=== PATIENT | male | born 1970 | race Caucasian/White ===

== ENCOUNTER 2016-09-07 12:00 | Inpatient (IN) | payer OTHER ==
--- NOTE | ~2016-09-07 | PN ---
Unit #: [id number] #: [id number] Patient: JACOB MEZA [id number] [facility] [address] [place] [address] [id number] MR#: [id number] NAME: JACOB MEZA ROOM: [facility] Age: 45 Sex: M Admission Date: 09/07/2016 : 1970 Attending Physician: Remi Stewart M.D. Admitting Physician: Remi Stewart M.D. Primary Care Physician: Primary Care Physician Jaimie HENRY PROGRESS NOTES DATE OF SERVICE 09/10/16 DISCUSSION Jacob is a 45-year-old male seen on 09/10/16. Patient interviewed, chart reviewed, I obtained information from nursing staff. Patient compliant, cooperative. Mood labile. Patient reports still having trouble sleeping, but denied any thoughts of harming self or others, making progress. COMPLETE REVIEW OF SYSTEMS Unremarkable. MENTAL STATUS EXAMINATION GENERAL APPEARANCE: Patient dressed casually. ATTENTION SPAN AND CONCENTRATION: Fair. Oriented in place and person. MOOD AND AFFECT: Labile. SPEECH: Monotone. THOUGHT PROCESS: Trail. Patient denied any thoughts of harming self or others, or any psychotic symptoms. RECENT AND REMOTE MEMORY: Poor. INSIGHT AND JUDGMENT: Poor. DIAGNOSIS Opiate use disorder, severe Mood disorder, NOS ASSESSMENT/PLAN Advised to continue with current medication and therapeutic protocol. If needed, consider further adjustment in medication. Dictated by... Lucero Chan/anibal TD: 09/10/2016 23:41 JOB #: [id number] Unit #: [id number] #: [id number] Patient: JACOB MEZA PEAELI PROGRESS NOTES Page 1 of 1 X Remi Stewart MD X PROGRESS NOTE
--- NOTE | ~2016-09-07 | PN ---
Unit #: [id number] #: [id number] Patient: ARGENIS MEZA [id number] [facility] [address] [place] [address] [id number] I MR#: [id number] NAME: ARGENIS MEZA ROOM: [facility] Age: 45 Sex: M Admission Date: 09/07/2016 : 1970 Attending Physician: Remi Stewart M.D. Admitting Physician: Remi Stewart M.D. Primary Care Physician: Primary Care Physician Jaimie HENRY PROGRESS NOTES DATE OF SERVICE 09/09/16 DISCUSSION Mr. James is a 45-year-old male patient seen on 09/09/16. Patient continues to report feeling, depressed, anxious, trouble falling asleep, denied any suicidal or homicidal ideation but reports making progress. COMPLETE REVIEW OF SYSTEMS Unremarkable. MENTAL STATUS EXAMINATION GENERAL APPEARANCE: Patient dressed casually. ATTENTION SPAN AND CONCENTRATION: Fair. Oriented in time, place and person. MOOD AND AFFECT: Sad, dysphoric, seclusive, isolative. SPEECH: Regular rate, coherent. THOUGHT PROCESS: Goal directed. Patient denied any thoughts of harming self or others, or any psychotic symptoms. RECENT AND REMOTE MEMORY: Fair to poor. INSIGHT AND JUDGMENT: Poor. DIAGNOSIS Opiate use disorder, severe ASSESSMENT/PLAN Advised to continue with current medication and therapeutic protocol with plan to add Seroquel 100 mg at bedtime. If needed, consider further adjustment in medication. Dictated by... Lucero Chan/anibal TD: 09/10/2016 22:52 JOB #: [id number] Unit #: [id number] #: [id number] Patient: ARGENIS MEZA PROGRESS NOTES Page 1 of 1 X Remi Stewart MD X PROGRESS NOTE
--- NOTE | ~2016-09-07 | HP ---
Unit #: [id number] #: [id number] Patient: JACOB MEZA [id number] [place] [address] [id number] MR#: [id number] NAME: JACOB MEZA ROOM: [facility] Age: 45 Sex: M Admission Date: 09/07/2016 : 1970 Attending Physician: Remi Stewart M.D. Admitting Physician: Remi Stewart M.D. Primary Care Physician: Primary Care Physician No HISTORY AND PHYSICAL HISTORY OF PRESENT ILLNESS Jacob is a 45 year old, admitted to [facility], because of his drug use. He snorts heroin. PAST MEDICAL HISTORY Long history of opioid abuse to include snorting heroin. PAST SURGICAL HISTORY Appendectomy. ALLERGIES No known drug allergies. SOCIAL HISTORY He smokes one pack per day, denies alcohol, admits to a long history of illicit substance abuse to include heroin. FAMILY HISTORY Medically noncontributory. REVIEW OF SYSTEMS CONSTITUTIONAL: No fever or chills. HEENT: Denies any sore throat, ear pain or runny nose. CARDIOVASCULAR: Denies chest pain, irregular heart rhythm or palpitations. CHEST: Denies shortness of breath or cough. No hemoptysis. GASTROINTESTINAL: Denies nausea, vomiting, diarrhea or chronic constipation. ENDOCRINE: Denies history of increased thirst or urination. No recent significant weight loss or gain. GENITOURINARY: Denies dysuria, frequency, or hematuria. SKIN: Denies any rashes. HEMATOLOGIC: Denies history of increased bleeding or bruising. MUSCULOSKELETAL: Denies any hot, swollen joints. No generalized muscle pain. NEUROLOGIC: Denies problems with vision or speech. No frequent, severe headaches. No numbness, tingling or weakness in any extremities. Denies loss of bladder or bowel control. CURRENT MEDICATIONS Detox protocol. PHYSICAL EXAMINATION GENERAL: Alert, well-nourished, no apparent distress. Unit #: [id number] #: [id number] Patient: JACOB MEZA VITAL SIGNS: Blood pressure 120/82, heart rate 76, respirations 16, and temperature 98.6. WEIGHT: 159 pounds. HEIGHT: 5 feet 6 inches. SKIN: Warm and dry without rash or lesion. HEENT: Normocephalic. TMs not viewed. Oral and nasal passages clear. Conjunctivae clear. PERRLA. EOMs intact. NECK: Supple without lymphadenopathy or thyromegaly. HEART: Regular rate and rhythm without murmur. LUNGS: Clear. ABDOMEN: Soft, nontender. : Not done. EXTREMITIES: No evidence of cyanosis, clubbing or edema. Moves all without focal deficit. NEUROLOGICAL: Grossly within normal limits. Cranial Nerves: II: Visual bardales are intact. III, IV AND : Extraocular movements are intact. Pupils are equal, round and reactive to light. V: Facial sensation is grossly normal. VII: Facial movements and expression are normal. VIII: Auditory acuity grossly intact. IX, X: Uvula is midline. Phonation is normal. XI: Patient shrugs shoulders and turns head normally. XII: Tongue protrudes in the midline. Sensory and Motor Function: Sensory and motor sensation is grossly normal. Motor: moves all extremities well. Coordination: Gait is normal. Deep Tendon Reflexes: Intact. IMPRESSION Psychiatric admission. RECOMMENDATIONS Psychiatric, per psychiatrist. MEDICAL I see no contraindications to participating in facility's activities. MEDICAL PROGNOSIS Good. MEDICAL CONDITION Stable. Dictated by... Jasmyn Garibay P.A.-C. for Lucero Corea/chayo TD: 09/08/2016 12:09 JOB #: [id number] Unit #: [id number] #: [id number] Patient: JACOB MEZA HISTORY AND PHYSICAL Page 1 of 1 X Jasmyn Garibay X HISTORY AND PHYSICAL
--- NOTE | ~2016-09-07 | DS ---
Unit #: [id number] #: [id number] Patient: ARGENIS MEZA [id number] [facility] [address] [place] [address] [id number] I MR#: [id number] NAME: ARGENIS MEZA ROOM: [facility] Age: 45 Sex: M Admission Date: 09/07/2016 : 1970 Discharge Date: 09/11/2016 Attending Physician: Remi Stewart M.D. Primary Care Physician: Primary Care Physician No DISCHARGE SUMMARY REASON FOR ADMISSION Substance abuse. DIAGNOSTIC STUDIES LABORATORY RESULTS: Unremarkable. HOSPITAL COURSE The patient was admitted to the inpatient unit on 09/07/2016 and discharged on 09/11/2016. The patient was treated on the inpatient unit with chemical dependency group, psychoeducation, psychotherapy, detox protocol, and detox monitoring. The patient responded well with the above modalities of treatment. Subsequently, the patient was discharged with a plan to follow up in outpatient program. DISCHARGE MEDICATIONS Seroquel 100 mg at bedtime for mood stabilization and Sinequan 100 mg at bedtime for sleep. DISCHARGE DIAGNOSES Psychiatric: Opioid use disorder, severe, F11.20. Secondary diagnosis: Deferred. Medical diagnosis: None. Stressors: Psychosocial stressors. DISCHARGE INSTRUCTIONS The patient to follow up in outpatient clinic as per social human services assistants. CONDITION ON DISCHARGE The patient was pleasant and cooperative. Denied any psychotic symptom or any suicidal ideation. PROGNOSIS Guarded. DIET AND ACTIVITY As tolerated. Dictated by... Remi Stewart M.D. Unit #: [id number] #: [id number] Patient: ARGENIS MEZA SZC/modl TD: 09/11/2016 18:29 JOB #: [id number] DISCHARGE SUMMARY Page 1 of 1 X Remi Stewart MD X DISCHARGE SUMMARY
--- NOTE | ~2016-09-07 | PA ---
Unit #: [id number] #: [id number] Patient: JACOB MEZA [id number] [facility] [address] [place] [address] [id number] I MR#: [id number] NAME: JACOB MEZA ROOM: [facility] Age: 45 Sex: M Admission Date: 09/07/2016 : 1970 Date of Assessment: Attending Physician: Remi Stewart M.D. Admitting Physician: Remi Stewart M.D. PSYCHIATRIC ASSESSMENT INFORMANTS The patient reliability, fair; chart reliability, good. CHIEF COMPLAINT Opioid abuse. HISTORY OF PRESENT ILLNESS Jacob Meza is a 45-year-old white male with the above-mentioned complaint. The patient reported use of heroin, reported uses between 0.5 to 1 g daily snorting. The patient denied any other use of drugs. The patient denied any suicidal or homicidal ideation. Denied any psychotic symptom. Reported feeling sad, depressed, anxious, and reported the patient scored 15 on COWS Score. The patient reported tobacco use, age of onset 19; alcohol, age of onset 24; marijuana, age of onset 23; LSD, age of onset 22; opioid, age of onset 42. The patient denied any blackout, HIV, hepatitis, or withdrawal symptom in the past, but currently having abdominal cramping, depressed mood, irritability, sleep problems, poor appetite. No IV drug abuse. PAST PSYCHIATRIC HISTORY Unremarkable for any history of any previous treatment. FAMILY HISTORY AND SOCIAL HISTORY The patient has 2 boys, lives with significant other, good support system. No history of abuse or legal problem. MEDICAL HISTORY Unremarkable for any chronic medical illness. Musculoskeletal: Muscle strength and tone, no atrophy or abnormal movement. Gait normal. MEDICATION HISTORY None. ALLERGIES No known drug allergies. SUBSTANCE ABUSE HISTORY Please see above. REVIEW OF SYSTEMS HEENT: Eyes, clear. Ears, nose, mouth, and throat; clear. CARDIOVASCULAR: Unremarkable. RESPIRATORY: Unremarkable. Unit #: [id number] #: [id number] Patient: JACOB MEZA GI: Unremarkable. : Unremarkable. SKIN: Unremarkable. LYMPH NODE: Unremarkable. NEUROLOGIC: Unremarkable. ENDOCRINE: Unremarkable. HEMATOLOGIC: Unremarkable. ALLERGIC/IMMUNOLOGIC: Unremarkable. MUSCULOSKELETAL: Muscle strength and tone, no atrophy or abnormal movement. Gait normal. MENTAL STATUS EXAMINATION CONSTITUTIONAL: Measurement of vital signs; temperature 98.3, pulse 77, respiratory rate 16, blood pressure 119/82. Height 5 feet 6 inches, weight 159 pounds. GENERAL APPEARANCE: The patient dressed casually. No facial deformity noted. MUSCULOSKELETAL: Please see above. PSYCHIATRIC EXAMINATION Description of speech; regular rate. Description of thought process, goal directed. Description of association, intact. Description of abnormal psychotic thinking; the patient denied any hallucination, delusions, mood lability. Denied suicidal or homicidal ideation. Description of the patient's judgment; concerning everyday activity, poor. Social situation, poor. Concerning psychiatric condition, poor. Complete mental status examination; oriented in time, place, and person. Recent and remote memory, fair. Attention span and concentration, fair. Language, intact. Fund of knowledge, fair. Vocabulary, fair. Mood and affect, sad and dysphoric. Insight and judgment, fair to poor. ASSETS AND LIABILITIES Assets, the patient is articulate and able to take care of his ADL. Liability, history of substance abuse. ADMITTING DIAGNOSES Psychiatric: Opioid use disorder, severe, F11.20. Secondary diagnosis: Deferred. Medical diagnosis: None. Stressors: Psychosocial stressors. PSYCHIATRIC PLAN 1. Advised to admit the patient on the inpatient unit. Provide safe, supportive, and structured environment. 2. Ordered labs; CBC, CMP, UA, and UDS. 3. Detox protocol and detox monitoring. 4. The patient to attend all the programing. If needed, consider further adjustment of medication, group therapy, individual therapy, family session if possible. TREATMENT GOAL To attain euthymic mood, gain insight into his problem, and learn coping skills. Unit #: [id number] #: [id number] Patient: JACOB MEZA DISCHARGE PLAN Plan to stabilize the patient and consider followup in outpatient program. ESTIMATED LENGTH OF STAY 5 days. Dictated by... Lucero Chan/benedicto TD: 09/09/2016 03:11 JOB #: [id number] PSYCHIATRIC ASSESSMENT Page 1 of 1 X Remi Stewart MD PSYCHIATRIC ASSESSMENT
--- NOTE | ~2016-09-07 | PN ---
Unit #: [id number] #: [id number] Patient: ARGENIS MEZA [id number] [facility] [address] [place] [address] [id number] I MR#: [id number] NAME: ARGENIS MEZA ROOM: [facility] Age: 45 Sex: M Admission Date: 09/07/2016 : 1970 Attending Physician: Remi Stewart M.D. Admitting Physician: Lucero Chan PROGRESS NOTES DATE OF SERVICE: 09/08/2016 DISCUSSION Mr. James is a 45-year-old male, seen on 09/08/2016. The patient interviewed, chart reviewed, and obtained information from nursing staff. The patient's vital signs; temperature 98.3, pulse 83, respirations 17, blood pressure 111/69. The patient is anxious, nervous. Reported anxiety, restlessness of his legs, mood lability, anxious. REVIEW OF SYSTEMS Complete review of systems unremarkable. MENTAL STATUS EXAMINATION General appearance, the patient dressed casually. Attention span and concentration, fair. Oriented in time, place, and person. Mood and affect, labile. Speech, regular rate. Thought process, goal directed. The patient denied any thoughts of harming self or others. Denied any psychotic symptom. Recent and remote memory, poor. Insight and judgment, poor. DIAGNOSIS Opioid use disorder, severe. ASSESSMENT/PLAN Advised to continue with current medication and therapeutic protocol. If needed, consider further adjustment of medication. Dictated by... Lucero Chan/benedicto TD: 09/09/2016 00:25 JOB #: [id number] Unit #: [id number] #: [id number] Patient: ARGENIS MEZA PROGRESS NOTES Page 1 of 1 X Remi Stewart MD PROGRESS NOTE
[2016-09-08 09:37] LABS: BASOPHIL% 0.7 % (0-2.5); EOSINOPHIL# 0.2 X10e3 (0-0.7); EOSINOPHIL% 2.8 % (0.0-7.0); HEMATOCRIT 42.5 % (38.0-50.0); LYMPHOCYTE# 1.6 X10e3 (1.0-3.5); LYMPHOCYTE% 25.2 % (17.0-45.0); MEAN CORPUSCULAR HEMOGLOBIN 29.5 PG (28-34); MEAN CORPUSCULAR HGB CONC 32.8 g/dL (30-36); MEAN PLATELET VOLUME 8.6 FL (6.5-11.5); MONOCYTE# 0.5 X10e3 (0-1.0); NEUTROPHIL# 4.1 X10e3 (1.5-7.1); NEUTROPHIL% 64.3 % (40-75); PLATELET COUNT 200 X10e3 (140-420); RED BLOOD COUNT 4.72 X10e (3.90-5.60); RED CELL DISTRIBUTION WIDTH 14.3 % (11.0-15.5); WHITE BLOOD COUNT 6.4 X10e3 (4.0-10.5)
[2016-09-08 09:56] LABS: DIFF IND NO
[2016-09-08 10:01] LABS: ALBUMIN SERUM 3.6 g/dL (3.5-5.0); BILIRUBIN,TOTAL 0.7 mg/dL (0.2-2.0); GLOM FILT RATE Estimated 91.8 mL/min (>60)
[2016-09-09 09:43] LABS: URINE APPEARANCE CLEAR; URINE BILIRUBIN NEG (NEG); URINE BLOOD NEG (NEG); URINE COLOR YELLOW; URINE GLUCOSE NEG (NEG); URINE KETONE NEG (NEG); URINE LEUKOCYTE ESTERASE NEG (NEG); URINE NITRATE NEG (NEG); URINE PROTEIN NEG (NEG); URINE SPECIFIC GRAVITY 1.007 (1.003-1.035); URINE UROBILINOGEN 0.2 MG/DL (NEG)
[2016-09-09 10:47] LABS: AMPHETAMINE NEG (NEG); BARBITURATES NEG (NEG); BENZODIAZEPINES NEG (NEG); COCAINE NEG (NEG); MARIJUANA NEG (NEG); OPIATES NEG (NEG); TRICYCLIC ANTIDEPRESSANTS NEG (NEG); U METHADONE NEG (NEG)
== END 2016-09-11 11:15 | DRG 897 ==
LOC: P1E 14:11
PROVIDERS: Psychiatry & Neurology Psychiatry
PROC: HZ2ZZZZ Detoxification Services for Substance Abuse Treatment (ICD-10-PCS; principal; 2016-09-07)
DX: F11.20 Opioid dependence, uncomplicated (principal); F39 Unspecified mood [affective] disorder; F17.210 Nicotine dependence, cigarettes, uncomplicated
CPT/HCPCS: 80053; 80307; 81003; 85025; 86592; 87651